=== PATIENT | male | born 1960 | race Caucasian/White ===

== ENCOUNTER 2016-09-17 09:34 | Emergency (ER) | payer OTHER ==
[2016-09-17] MEDS ORDERED: Ondansetron HCl/PF 4 MG/2 ML Vial ONE (10:03)
[2016-09-17 10:13] LABS: #Basophils 0.1 thou/uL (0.0-0.2); #Eosinphils 0.3 thou/uL (0.0-0.7); #Lymphocytes 1.5 thou/uL (1.20-3.40); #Monocytes 0.4 thou/uL (0.11-0.59); #Neutrophils 4.1 thou/uL (1.40-6.50); %Eosinophils 4.4 % (0.0-10.0); %Lymphocytes 24.3 % (21.0-51.0); %Monocytes 6.3 % (0.0-10.0); %Neutrophils 64.1 % (42.0-75.0); Hemoglobin 14.4 g/dL (14.0-18.0); Mean Corpuscular HGB CONC 33.6 g/dL (32.0-36.0); Mean Corpuscular Hemoglobin 29.5 pg (27.0-31.0); Mean Corpuscular Volume 87.9 fl (80.0-94.0); Mean Platelet Volume 6.9 fL (7.4-10.4); Platelet Count 298 thou/uL (130-400); RBC Distribution Width 12.2 % (11.5-14.5); Red Blood Cell (RBC) Count 4.89 mill/uL (4.70-6.10); White Blood Cell (WBC) Count 6.3 thou/uL (4.8-10.8)
[2016-09-17 10:25] LABS: ALT (SGPT) 15 U/L (8-55); AST (SGOT) 13 U/L (5-34); Albumin 4.2 g/dL (3.5-5.0); Alkaline Phosphatase 60 U/L (40-150); Anion Gap 12 mmol/L (10-20); BUN (Urea Nitrogen) 11 mg/dL (8.4-25.7); Bilirubin, Total 0.2 mg/dL (0.2-1.2); Calc. Creatinine Clearance 0 mL/min (70-130); Carbon Dioxide 25 mmol/L (22-29); Chloride 107 mmol/L (98-107); Estimated GFR-MDRD 86; Globulin 2.9 g/dL (2.4-3.5); Glucose 94 mg/dL (70-105); Lipase 21 U/L (8-78); Potassium 4.3 mmol/L (3.5-5.1); Protein, Total 7.1 g/dL (6.0-8.3); Sodium 140 mmol/L (136-145)
== END 2016-09-17 10:59 | disposition home or self-care (01) ==
LOC: BURERS 09:34
DX: E86.0 Dehydration (principal); K52.9 Noninfective gastroenteritis and colitis, unspecified; F17.210 Nicotine dependence, cigarettes, uncomplicated
CPT/HCPCS: 80053; 83690; 85025; 93005; 96361; 96374; J2405

== ENCOUNTER 2016-10-19 16:46 | Outpatient (CLI) | payer OTHER ==
[2016-10-19 17:38] LABS: Cocaine Metabolite Screen Not Detected (NotDetected); Methamphetamine Not Detected (NotDetected); Opiate Screen Detected (NotDetected); Phencyclidine (PCP) Not Detected (NotDetected); THC/Cannabinoid Screen Detected (NotDetected)
[2016-10-19 17:39] LABS: Amphetamine Not Detected (NotDetected); Barbiturates Screen Not Detected (NotDetected); Benzodiazepine Screen Not Detected (NotDetected); Medtox Control Line Valid? VALID (VALID); Methadone Not Detected (NotDetected); Oxycodone Screen Not Detected (NotDetected); Tricyclic Screen Detected (NotDetected)
== END 2016-10-19 16:47 | disposition home or self-care (01) ==
LOC: HPCALD 16:46
PROVIDERS: ATTEND Family Medicine
DX: F11.90 Opioid use, unspecified, uncomplicated (principal)
CPT/HCPCS: 80306

== ENCOUNTER 2017-05-12 12:10 | Emergency (ER) | payer MEDICARE, OTHER | END 2017-05-12 13:08 | disposition home or self-care (01) | LOC: BURERS 12:10 | DX: S01.83XA Puncture wound without foreign body of other part of head, initial encounter (principal); F43.10 Post-traumatic stress disorder, unspecified; F17.210 Nicotine dependence, cigarettes, uncomplicated; W61.32XA Struck by chicken, initial encounter | CPT/HCPCS: 99283 ==

== ENCOUNTER 2017-06-16 18:09 | Emergency (ER) | payer OTHER ==
[2017-06-16 18:38] LABS: #Basophils 0.1 thou/uL (0.0-0.2); #Eosinphils 0.5 thou/uL (0.0-0.7); #Lymphocytes 1.7 thou/uL (1.20-3.40); #Monocytes 0.5 thou/uL (0.11-0.59); #Neutrophils 5.7 thou/uL (1.40-6.50); %Basophils 1.1 % (0.0-1.0); %Eosinophils 5.8 % (0.0-10.0); %Lymphocytes 19.8 % (21.0-51.0); %Monocytes 5.6 % (0.0-10.0); %Neutrophils 67.7 % (42.0-75.0); Hemoglobin 13.4 g/dL (14.0-18.0); Mean Corpuscular HGB CONC 36.8 g/dL (32.0-36.0); Mean Corpuscular Hemoglobin 31.4 pg (27.0-31.0); Mean Corpuscular Volume 85.3 fl (80.0-94.0); Mean Platelet Volume 6.5 fL (7.4-10.4); Platelet Count 264 thou/uL (130-400); RBC Distribution Width 12.5 % (11.5-14.5); Red Blood Cell (RBC) Count 4.26 mill/uL (4.70-6.10); White Blood Cell (WBC) Count 8.4 thou/uL (4.8-10.8)
[2017-06-16 18:49] LABS: ALT (SGPT) 17 U/L (8-55); AST (SGOT) 17 U/L (5-34); Alkaline Phosphatase 64 U/L (40-150); Anion Gap 15 mmol/L (10-20); BUN (Urea Nitrogen) 7 mg/dL (8.4-25.7); Bilirubin, Total Less than 0.2 mg/dL (0.2-1.2); Calc. Creatinine Clearance 0 mL/min (70-130); Carbon Dioxide 23 mmol/L (22-29); Chloride 107 mmol/L (98-107); Estimated GFR-MDRD 61; Globulin 2.9 g/dL (2.4-3.5); Glucose 180 mg/dL (70-105); Potassium 3.7 mmol/L (3.5-5.1); Protein, Total 6.9 g/dL (6.0-8.3); Sodium 141 mmol/L (136-145)
[2017-06-16 18:50] LABS: CKMB 0.9 ng/mL (0-6.6); Troponin I 0.012 ng/mL (< 0.028)
[2017-06-16 18:55] LABS: Calcium 8.8 mg/dL (7.8-10.44)
--- NOTE | 2017-06-16 21:17 | RAD ---
PORTABLE CHEST: Date: 06-16-17 Technique: 1818 Comparison: 06-12-13 FINDINGS: The heart remains normal size. The lungs are clear. No lobar infiltrate or effusion was seen. The med iastinum was unremarkable. Some minor scarring is suggested in the costophrenic angle. IMPRESSION: No acute thoracic finding. POS: HOME
--- NOTE | 2017-06-16 21:41 | CT ---
CT ANGIO OF THE CHEST WITH CONTRAST: Date: 06-16-17 Technique: Spiral CT of the chest was performed for evaluation on dyspnea. Axial slices were acquired then oblique images through the pulmonary arteries were reconstructed later. There is good opacification of the pulmonary arteries. No internal defects were seen to suggest embol i. The aorta showed no sign of aneurysm or dissection. The coronary arteries are difficult to evaluat e. There is no pericardial effusion. No mediastinal mass or adenopathy was seen. A small hiatal herni a was noted. No pulmonary masses of concern were seen. There are some areas of scarring in the lower lobes posteri maría and in the lingula on the left. There are a few areas of diffuse ground glass density in the rig ht costophrenic angle and also in the lingula that are near the areas of scarring. It seems more like ly that this is due to scarring and/or atelectasis than any other more significant pathology. The scans went a few slices into the upper abdomen and the visible areas were unremarkable in appeara nce. IMPRESSION: 1. No evidence of pulmonary embolism or acute thoracic pathology. 2. Areas of parenchymal scarring. A few ground glass densities described above are vague and diffuse and are most likely scarring or atelectasis. 3. Small hiatal hernia. POS: HOME
== END 2017-06-16 20:11 | disposition home or self-care (01) ==
LOC: BURERS 18:09
DX: F41.9 Anxiety disorder, unspecified (principal); R05 Cough; R06.02 Shortness of breath; F43.10 Post-traumatic stress disorder, unspecified; F17.210 Nicotine dependence, cigarettes, uncomplicated; Z79.899 Other long term (current) drug therapy
CPT/HCPCS: 71045; 71275; 80053; 82553; 83880; 84484; 85025

== ENCOUNTER 2018-01-05 16:31 | Emergency (ER) | payer OTHER ==
[2018-01-05] MEDS ORDERED: Heparin 25,000 units/D5W 0 ML ONE (16:59)
[2018-01-05] MEDS ORDERED: Heparin 5,000 UNITS/ML VIAL ONE (16:59)
--- NOTE | 2018-01-05 17:43 | RAD ---
CHEST TWO VIEWS: HISTORY: Cough. COMPARISON: 06/12/2013 FINDINGS: Normal cardiac silhouette. The pulmonary vessels and hilum are normal. No mass. No consolidation. No pneumothorax or osseous abnormalities. IMPRESSION: No acute cardiopulmonary process. POS: PPP
== END 2018-01-05 17:26 | disposition home or self-care (01) ==
LOC: BURERS 16:31
DX: R05 Cough (principal); F41.9 Anxiety disorder, unspecified; F32.9 Major depressive disorder, single episode, unspecified; F43.10 Post-traumatic stress disorder, unspecified; F17.210 Nicotine dependence, cigarettes, uncomplicated; Z79.899 Other long term (current) drug therapy
CPT/HCPCS: 71046; 93005; 99406; J1644

== ENCOUNTER 2019-05-10 03:24 | Emergency (ER) | payer MEDICARE, OTHER ==
[2019-05-10] MEDS ORDERED: Ondansetron PF 4 MG/2 ML Vial ONE (04:11)
[2019-05-10 04:46] LABS: #Basophils 0.1 thou/uL (0.0-0.2); #Eosinphils 0.1 thou/uL (0.0-0.7); #Lymphocytes 1.4 thou/uL (1.20-3.40); #Monocytes 0.5 thou/uL (0.11-0.59); #Neutrophils 7.2 thou/uL (1.40-6.50); %Basophils 0.7 % (0.0-1.0); %Eosinophils 1.1 % (0.0-10.0); %Lymphocytes 14.8 % (21.0-51.0); %Monocytes 5.5 % (0.0-10.0); %Neutrophils 77.8 % (42.0-75.0); Hemoglobin 14.4 g/dL (14.0-18.0); Mean Corpuscular Hemoglobin 28.2 pg (27.0-31.0); Mean Corpuscular Volume 88.1 fL (78.0-98.0); Mean Platelet Volume 6.4 fL (7.4-10.4); Platelet Count 385 thou/uL (130-400); Red Blood Cell (RBC) Count 5.09 mill/uL (4.70-6.10); White Blood Cell (WBC) Count 9.3 thou/uL (4.8-10.8)
[2019-05-10 05:02] LABS: ALT (SGPT) 13 U/L (8-55); AST (SGOT) 13 U/L (5-34); Albumin 4.9 g/dL (3.5-5.0); Alkaline Phosphatase 57 U/L (40-110); Anion Gap 13 mmol/L (10-20); BUN (Urea Nitrogen) 12 mg/dL (8.4-25.7); Bilirubin, Total 0.4 mg/dL (0.2-1.2); Calc. Creatinine Clearance 0 mL/min (70-130); Calcium 9.9 mg/dL (7.8-10.44); Carbon Dioxide 25 mmol/L (22-29); Chloride 104 mmol/L (98-107); Estimated GFR-MDRD 77; Glucose 102 mg/dL (70-105); Lipase 15 U/L (8-78); Potassium 4.2 mmol/L (3.5-5.1); Protein, Total 7.9 g/dL (6.0-8.3); Sodium 138 mmol/L (136-145)
== END 2019-05-10 05:30 | disposition home or self-care (01) ==
LOC: BURERS 03:24
DX: R11.2 Nausea with vomiting, unspecified (principal); R19.7 Diarrhea, unspecified; G62.9 Polyneuropathy, unspecified; F41.9 Anxiety disorder, unspecified; F32.9 Major depressive disorder, single episode, unspecified; F43.10 Post-traumatic stress disorder, unspecified; F17.210 Nicotine dependence, cigarettes, uncomplicated; Z79.51 Long term (current) use of inhaled steroids; Z79.899 Other long term (current) drug therapy
CPT/HCPCS: 80053; 83690; 85025; 93005; J2405

== ENCOUNTER 2019-05-10 19:01 | Emergency (ER) | payer MEDICARE ==
[2019-05-10] MEDS ORDERED: Promethazine HCl 25 MG/ML VIAL ONE (19:22)
== END 2019-05-10 20:15 | disposition home or self-care (01) ==
LOC: BURERS 19:01
DX: R11.2 Nausea with vomiting, unspecified (principal); G62.9 Polyneuropathy, unspecified; F41.9 Anxiety disorder, unspecified; F32.9 Major depressive disorder, single episode, unspecified; F43.10 Post-traumatic stress disorder, unspecified; F17.210 Nicotine dependence, cigarettes, uncomplicated; Z71.6 Tobacco abuse counseling; Z79.899 Other long term (current) drug therapy
CPT/HCPCS: 80053; 83690; 85025; 93005; 96361; 96372; 96374; 99406; J2405; J2550

== ENCOUNTER 2019-05-15 16:54 | Emergency (ER) | payer MEDICARE ==
[2019-05-15] MEDS ORDERED: Ondansetron ODT 4 MG TAB ONE (17:54)
== END 2019-05-15 17:57 | disposition home or self-care (01) ==
LOC: BURERS 16:54
DX: R11.2 Nausea with vomiting, unspecified (principal); Z76.0 Encounter for issue of repeat prescription; F41.9 Anxiety disorder, unspecified; F32.9 Major depressive disorder, single episode, unspecified; F43.10 Post-traumatic stress disorder, unspecified; F17.210 Nicotine dependence, cigarettes, uncomplicated; Z79.899 Other long term (current) drug therapy
CPT/HCPCS: 93005; Q0162

== ENCOUNTER 2019-11-27 21:23 | Emergency (ER) | payer MEDICARE ==
[2019-11-27] MEDS ORDERED: Ondansetron PF 4 MG/2 ML Vial ONE (22:29)
[2019-11-27 22:50] LABS: #Basophils 0.1 thou/uL (0.0-0.2); #Eosinphils 0.2 thou/uL (0.0-0.7); #Lymphocytes 1.3 thou/uL (1.20-3.40); #Monocytes 0.6 thou/uL (0.11-0.59); #Neutrophils 7.4 thou/uL (1.40-6.50); %Basophils 0.8 % (0.0-1.0); %Eosinophils 2.2 % (0.0-10.0); %Lymphocytes 13.4 % (21.0-51.0); %Monocytes 6.2 % (0.0-10.0); %Neutrophils 77.4 % (42.0-75.0); Hemoglobin 14.1 g/dL (14.0-18.0); Mean Corpuscular HGB CONC 30.2 g/dL (32.0-36.0); Mean Corpuscular Hemoglobin 28.1 pg (27.0-31.0); Mean Corpuscular Volume 92.9 fL (78.0-98.0); Mean Platelet Volume 6.8 fL (7.4-10.4); Platelet Count 340 thou/uL (130-400); RBC Distribution Width 12.3 % (11.5-14.5); Red Blood Cell (RBC) Count 5.04 mill/uL (4.70-6.10); White Blood Cell (WBC) Count 9.6 thou/uL (4.8-10.8)
[2019-11-27 23:04] LABS: ALT (SGPT) 22 U/L (8-55); AST (SGOT) 14 U/L (5-34); Albumin 4.5 g/dL (3.5-5.0); Alkaline Phosphatase 64 U/L (40-110); Anion Gap 15 mmol/L (10-20); BUN (Urea Nitrogen) 7 mg/dL (8.4-25.7); Bilirubin, Total 0.3 mg/dL (0.2-1.2); Calc. Creatinine Clearance 0 mL/min (70-130); Calcium 9.7 mg/dL (7.8-10.44); Carbon Dioxide 24 mmol/L (22-29); Chloride 105 mmol/L (98-107); Estimated GFR-MDRD 79; Globulin 3.2 g/dL (2.4-3.5); Glucose 108 mg/dL (70-105); Lipase 22 U/L (8-78); Potassium 4.1 mmol/L (3.5-5.1); Protein, Total 7.7 g/dL (6.0-8.3); Sodium 140 mmol/L (136-145)
--- NOTE | 2019-11-28 11:04 | CT ---
PRELIMINARY REPORT/[facility]/EMERGENCY AFTER HOURS PROCEDURE: EXAM: CT Abdomen and Pelvis Without Intravenous Contrast CLINICAL HISTORY: PT C/O N/V THAT STARTED THIS MORNING TECHNIQUE: Axial computed tomography images of the abdomen and pelvis without intravenous contrast. CONTRAST: None. COMPARISON: None provided. FINDINGS: LUNG BASES: No basilar airspace consolidation or pleural effusion. Scattered sub-6 mm solid pulmonary nodules at the lung bases. LIVER: Unremarkable. GALLBLADDER AND BILE DUCTS: Unremarkable. No calcified stone. No ductal dilation. PANCREAS: Unremarkable. SPLEEN: Unremarkable. ADRENAL GLANDS: Unremarkable. KIDNEYS, URETERS, AND BLADDER: Unremarkable. No hydronephrosis or nephrolithiasis. No ureteral or bladder calculi. STOMACH AND BOWEL: No obstruction. No wall thickening. No CT evidence of colitis or acute diverticulitis. APPENDIX: No CT evidence for appendicitis. PERITONEUM: No free fluid. No free air. LYMPH NODES: No lymphadenopathy. REPRODUCTIVE: Unremarkable as visualized. VASCULATURE: No aortic aneurysm. ABDOMINAL WALL AND SOFT TISSUES: Unremarkable. BONES: No fracture or suspicious osseous abnormality. IMPRESSION: 1. No acute intra-abdominal or intrapelvic findings. 2. Scattered sub-6 mm solid pulmonary nodules at the lung bases. In the absence of risk factors, no follow-up is recommended. If the patient is considered high risk, consider a follow-up CT of the est in 12 months. ELECTRONICALLY SIGNED BY: Darrick Petty MD Nov 27, 2019 10:51:59 PM CDT This report is intended for review by the ordering physician only, in accordance of law. If you recei ve this report in error, please call [facility] at [phone]. FINAL REPORT CT ABDOMEN AND PELVIS WITHOUT CONTRAST: Date: 11/27/2019 Comparison is made with the prior study done with contrast on 06/11/2013. The lung bases are clear. There are a few tiny scattered nodular densities in the lung bases, the lar gest being about 5.0 mm in size in the left lower lobe. It was present on a [address] CT and has not melara ed. In the absence of other worrisome risk factors, none of this probably requires any follow-up. The liver, spleen, pancreas, adrenal glands, gallbladder, kidneys, and abdominal aorta showed no acute f indings within the limitations of a noncontrast study. There was no distended bowel, bowel wall thick ening, gastric dilation, or inflammatory changes to explain the patient's nausea and vomiting. No maria isabel e air or free fluid was seen. CT of the pelvis shows no pelvic masses, fluid collections, or inflammatory changes. The seminal vesi cles seem a little larger than they were on the 2014 study, but they are symmetrical in appearance. IMPRESSION: No acute abdominal or pelvic findings to explain the patient's nausea and vomiting. Report in agreement with preliminary reading by [facility]. POS: HOME
== END 2019-11-27 23:20 | disposition home or self-care (01) ==
LOC: BURERS 21:23
DX: R11.2 Nausea with vomiting, unspecified (principal); F41.9 Anxiety disorder, unspecified; F32.9 Major depressive disorder, single episode, unspecified; F43.10 Post-traumatic stress disorder, unspecified; F17.210 Nicotine dependence, cigarettes, uncomplicated; Z79.899 Other long term (current) drug therapy
CPT/HCPCS: 74176; 80053; 83605; 83690; 85025; 96374; J2405

== ENCOUNTER 2020-11-23 20:17 | Emergency (ER) | payer MEDICARE ==
[2020-11-23 21:53] LABS: SARS-CoV-2 NAA Rapid Test DETECTED (NotDetected)
== END 2020-11-23 22:06 | disposition home or self-care (01) ==
LOC: BURERS 20:17
DX: U07.1 COVID-19 (principal); A08.4 Viral intestinal infection, unspecified; J44.9 Chronic obstructive pulmonary disease, unspecified; F17.210 Nicotine dependence, cigarettes, uncomplicated; Z79.899 Other long term (current) drug therapy
CPT/HCPCS: 71045; U0002; 99284